=== PATIENT | female | born 1990 | race Caucasian/White ===

== ENCOUNTER 2022-04-28 06:05 | Emergency (ER) | payer OTHER ==
[~2022-04-28] VITALS: Ht 167.6 cm; Wt 67.6 kg
[2022-04-28 06:14] VITALS: BP 111/74
--- NOTE | 2022-04-28 06:32 | NUR ---
PT TO BED 12
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
[2022-04-28] MEDS ORDERED: ACETAMINOPHEN EXTRA STRENGTH 500 MG TAB PO ONE (06:45)
--- NOTE | 2022-04-28 07:06 | NUR ---
PATIENT TAKEN TO CT VIA W/C
--- NOTE | 2022-04-28 07:14 | NUR ---
REPORT GIVEN TO ANN OSCAR. TRANSFER OF CARE.
[2022-04-28 08:43] VITALS: BP 111/74
--- NOTE | 2022-04-28 08:44 | NUR ---
Patient discharged with v/s stable. Written and verbal after care instructions given and explained. Patient verbalized understanding. Ambulatory with steady gait. All questions addressed prior to discharge. Advised to follow up with PMD.
== END 2022-04-28 08:44 | disposition home or self-care (01) ==
LOC: MED 06:05
DX: S02.2XXA Fracture of nasal bones, initial encounter for closed fracture (principal); V49.88XA Car occupant (driver) (passenger) injured in other specified transport accidents, initial encounter; Y93.89 Activity, other specified; Y92.89 Other specified places as the place of occurrence of the external cause; Y99.8 Other external cause status
CPT/HCPCS: 70450; 70486; 99284